=== PATIENT | female | born 1990 ===

== ENCOUNTER 2024-11-19 12:59 | Outpatient (REF) | payer OTHER, SELFPAY ==
--- NOTE | ~2024-11-19 | US_ITS ---
EXAMINATION: US RETROPERITONEAL COMPLETE (RENAL) CLINICAL INFORMATION: Right lower quadrant and right flank pain. COMPARISON: None available. TECHNIQUE: Real-time imaging of the kidneys and bladder. FINDINGS: RIGHT KIDNEY: 9.9 x 3.7 x 5.1 cm (SAG x AP x TRV). The kidney is normal in size, contour, and echogenicity. Renal cortical thickness is normal. There is a nonobstructing mid pole calculus measuring 6 x 4 x 7 mm. There is mild hydronephrosis present and dilatation of the proximal right ureter. Distally, there is an obstructing ureterovesical junction stone measuring 7 x 5 x 5 mm. LEFT KIDNEY: 9.9 x 4.3 x 4.4 cm (SAG x AP x TRV). The kidney is normal in size, contour, and echogenicity. Renal cortical thickness is normal. No calculi or focal parenchymal lesions. No hydronephrosis. BLADDER: Moderately distended. There is mild specular echogenic layering debris. Bilateral ureteral jets are demonstrated. Prevoid bladder volume is 204 mL. Postvoid bladder volume is 14.5 mL. US/US retroperitoneal comp IMPRESSION: 1. Mild right hydronephrosis and hydroureter secondary to a partially obstructing distal UVJ stone measuring 7 x 5 x 5 mm. 2. Nonobstructing right renal calculus midpole measuring 6 x 4 x 7 mm. 3. Normal left kidney. 4. Bladder demonstrates mild layering specular debris. Normal ureteral jets. Postvoid volume of 14.5 mL. Electronically signed by: Ryan Raymond MD 11/19/2024 02:28 PM [email or web address]
== END 2024-11-19 13:00 | disposition home or self-care (01) ==
LOC: HO.UMASIMG 12:59
PROVIDERS: Visit Provider Emergency Medicine
DX: R30.0 Dysuria (principal); N23 Unspecified renal colic
CPT/HCPCS: 76770

== ENCOUNTER → 2024-11-19 13:40 | Outpatient (BNV) | payer OTHER, SELFPAY | PROVIDERS: Visit Provider Radiology Diagnostic Radiology | DX: N13.39 Other hydronephrosis (principal); N20.2 Calculus of kidney with calculus of ureter | CPT/HCPCS: 76770 ==